=== PATIENT | male | born 1955 | race Caucasian/White ===

== ENCOUNTER 2023-01-10 14:51 | Inpatient (IN) | payer OTHER, MEDICARE ==
[~2023-01-10] VITALS: Ht 177.8 cm; Wt 94.7 kg
[2023-01-10 15:50] VITALS: BP 155/107
[2023-01-10 17:11] VITALS: BP 153/94
[2023-01-10] MEDS ORDERED: DEXTROSE 50%-WATER 25 GM/50 ML SYRINGE IVP PRN (17:30)
[2023-01-10] MEDS ORDERED: MELATONIN 3 MG TABLET PO PRN (17:45)
[2023-01-10] MEDS: HEPARIN SODIUM,PORCINE 5,000 UNITS/ML VIAL SQ SCH ×2 (17:45→23:30)
[2023-01-10 18:32] VITALS: BP 153/94
[2023-01-10 21:00] VITALS: BP 161/68
[2023-01-10] MEDS: SENNOSIDES 8.6 MG TABLET PO SCH (21:00)
[2023-01-10] MEDS: DOCUSATE SODIUM 100 MG CAPSULE PO SCH (21:18)
[2023-01-10] MEDS: GABAPENTIN 300 MG CAPSULE PO SCH (21:18)
[2023-01-10] MEDS: SULFAMETHOX/TRIMETH DS 800-160 MG/TABLET PO SCH (21:19)
[2023-01-10] MEDS: ATORVASTATIN CALCIUM 40 MG TABLET PO SCH (21:19)
[2023-01-10] MEDS: TraZODone HCL 150 MG TABLET PO SCH (21:50)
[2023-01-10] MEDS: VENLAFAXINE HCL 75 MG ER CAPSULE PO SCH (21:50)
[2023-01-10] MEDS: ETHYL ALCOHOL 62% ANTISEPTIC NASAL SANITIZER 0.6 ML AMPUL NASAL SCH (21:51)
[2023-01-10] MEDS: INSULIN LISPRO 100 UNITS/ML SQ PRN (21:52)
[2023-01-10 22:16] LABS: GLUCOMETER DEV NAME(LOC) 2WR.2B; GLUCOSE,POINT OF CARE 163 MG/DL (70-110)
[2023-01-11 06:03] LABS: BASOPHILS % (AUTO) 0.6 % (0.0-2.0); EOSINOPHILS % (AUTO) 2.4 % (1.0-6.0); HEMATOCRIT 39.1 % (41-53); HEMOGLOBIN 13.2 g/dL (13.5-17.5); LYMPHOCYTES # (AUTO) 1.7 K/uL (1.0-4.8); LYMPHOCYTES % (AUTO) 23.2 % (22.0-44.0); MEAN CORPUSCULAR HEMOGLOBIN 31.6 pg (26.0-34.0); MEAN CORPUSCULAR HGB CONC 33.8 G/dL (31.0-37.0); MEAN CORPUSCULAR VOLUME 93 fL (80-100); MONOCYTES # (AUTO) 0.8 K/uL (0.1-1.0); MONOCYTES % (AUTO) 10.9 % (2.0-9.0); NEUTROPHILS # (AUTO) 4.5 K/uL (1.8-7.7); NEUTROPHILS % (AUTO) 62.9 % (40.0-70.0); PLATELET COUNT (AUTO) 310 K/uL (150-450); RED BLOOD CELL COUNT(AUTO) 4.19 MIL/uL (4.50-5.90); RED CELL DISTRIBUTION WIDTH 13.8 % (11.5-14.5)
[2023-01-11 06:23] LABS: ALANINE AMINOTRANSFERASE 22 U/L (12-78); ALBUMIN 3.2 g/dL (3.4-5.0); ALKALINE PHOSPHATASE 65 U/L (46-116); ANION GAP 6 mmol/L (8-16); ASPARTATE AMINOTRANSFERASE 24 U/L (15-37); BILIRUBIN,TOTAL 0.2 mg/dL (0.1-1.0); CARBON DIOXIDE 29 mmol/L (22-29); CHLORIDE 103 mmol/L (98-107); CREATININE 1.17 mg/dL (0.60-1.30); GLOMERULAR FILTR. RATE CALC > 60 mL/min (>60); GLUCOSE,RANDOM 166 mg/dL (70-110); POTASSIUM 3.6 mmol/L (3.5-5.1); SODIUM SERUM 138 mmol/L (136-145); TOTAL PROTEIN, SERUM 6.5 g/dL (6.4-8.2); UREA NITROGEN, BLOOD 15 mg/dL (7-18)
[2023-01-11 06:56] LABS: GLUCOMETER DEV NAME(LOC) 2WR.2B; GLUCOSE,POINT OF CARE 177 MG/DL (70-110)
[2023-01-11] MEDS: CLOPIDOGREL BISULFATE 75 MG TABLET PO SCH (08:23)
[2023-01-11] MEDS: HEPARIN SODIUM,PORCINE 5,000 UNITS/ML VIAL SQ SCH ×3 (08:23→23:01)
[2023-01-11] MEDS: DOCUSATE SODIUM 100 MG CAPSULE PO SCH ×2 (08:24→20:32)
[2023-01-11] MEDS: CHOLECALCIFEROL (VIT D3) 1,000 UNITS [25 MCG] TABLET PO SCH (08:24)
[2023-01-11] MEDS: ASPIRIN 81 MG CHEWABLE TABLET PO SCH (08:24)
[2023-01-11] MEDS: SULFAMETHOX/TRIMETH DS 800-160 MG/TABLET PO SCH ×2 (08:25→20:32)
[2023-01-11] MEDS: BuPROPion HCL XL 150 MG ER TABLET PO SCH (08:25)
[2023-01-11] MEDS: INSULIN LISPRO 100 UNITS/ML SQ PRN ×4 (08:33→20:34)
[2023-01-11] MEDS: ETHYL ALCOHOL 62% ANTISEPTIC NASAL SANITIZER 0.6 ML AMPUL NASAL SCH ×2 (09:00→20:31)
[2023-01-11 09:02] VITALS: BP 165/92
[2023-01-11] MEDS ORDERED: PEG 400/HYPROMELLOSE/GLYCERIN 15 ML OPHTHALMIC SOLUTION OU PRN (14:30)
[2023-01-11] MEDS ORDERED: *PATIENT'S OWN MED [ENTER DRUG, DOSE, FREQUENCY IN COMMENTS] CLINICAL ONE ×2 (14:30)
[2023-01-11 14:31] LABS: GLUCOMETER DEV NAME(LOC) 2WR.2B; GLUCOSE,POINT OF CARE 162 MG/DL (70-110)
[2023-01-11] MEDS ORDERED: TRULICITY (DULAGLUTIDE) 1.5MG/0.5ML SQ SCH (15:00)
[2023-01-11 18:21] LABS: GLUCOMETER DEV NAME(LOC) 2WR.2B; GLUCOSE,POINT OF CARE 142 MG/DL (70-110)
[2023-01-11 20:26] LABS: GLUCOMETER DEV NAME(LOC) 2WR.2B; GLUCOSE,POINT OF CARE 152 MG/DL (70-110)
[2023-01-11] MEDS: ATORVASTATIN CALCIUM 40 MG TABLET PO SCH (20:31)
[2023-01-11] MEDS: VENLAFAXINE HCL 75 MG ER CAPSULE PO SCH (20:31)
[2023-01-11] MEDS: GABAPENTIN 300 MG CAPSULE PO SCH (20:31)
[2023-01-11] MEDS: TraZODone HCL 150 MG TABLET PO SCH (20:32)
[2023-01-11] MEDS: SENNOSIDES 8.6 MG TABLET PO SCH (21:00)
[2023-01-11 22:37] VITALS: BP 161/84
[2023-01-12 06:36] LABS: GLUCOMETER DEV NAME(LOC) 2WR.2B; GLUCOSE,POINT OF CARE 164 MG/DL (70-110)
[2023-01-12 08:00] VITALS: BP 209/106
[2023-01-12] MEDS: DAPAGLIFLOZIN PO SCH (08:17)
[2023-01-12] MEDS: METFORMIN PO SCH (08:17)
[2023-01-12] MEDS: SULFAMETHOX/TRIMETH DS 800-160 MG/TABLET PO SCH ×2 (08:18→20:54)
[2023-01-12] MEDS: HEPARIN SODIUM,PORCINE 5,000 UNITS/ML VIAL SQ SCH ×2 (08:18→15:50)
[2023-01-12] MEDS: DOCUSATE SODIUM 100 MG CAPSULE PO SCH ×2 (08:18→20:54)
[2023-01-12] MEDS: ETHYL ALCOHOL 62% ANTISEPTIC NASAL SANITIZER 0.6 ML AMPUL NASAL SCH ×2 (08:18→20:55)
[2023-01-12] MEDS: ASPIRIN 81 MG CHEWABLE TABLET PO SCH (08:18)
[2023-01-12] MEDS: CLOPIDOGREL BISULFATE 75 MG TABLET PO SCH (08:18)
[2023-01-12] MEDS: CHOLECALCIFEROL (VIT D3) 1,000 UNITS [25 MCG] TABLET PO SCH (08:19)
[2023-01-12] MEDS: BuPROPion HCL XL 150 MG ER TABLET PO SCH (08:19)
[2023-01-12] MEDS: INSULIN LISPRO 100 UNITS/ML SQ PRN ×3 (08:22→17:47)
[2023-01-12] MEDS ORDERED: TRULICITY (DULAGLUTIDE) 1.5MG/0.5ML SQ SCH (09:00)
[2023-01-12] MEDS ORDERED: PANTOPRAZOLE SODIUM 40 MG DR TABLET PO SCH (09:15)
[2023-01-12] MEDS ORDERED: LISINOPRIL 20 MG TABLET PO SCH (09:15)
[2023-01-12 09:45] VITALS: BP 171/96
[2023-01-12] MEDS: LISINOPRIL 20 MG TABLET PO SCH (10:04)
[2023-01-12 12:51] LABS: GLUCOMETER DEV NAME(LOC) 2WR.1C; GLUCOSE,POINT OF CARE 148 MG/DL (70-110)
[2023-01-12 13:06] LABS: APPEARANCE,URINE CLEAR (CLEAR); BILIRUBIN,URINE NEGATIVE (NEGATIVE); GLUCOSE, URINE (UA) 300-500 mg/dL (NEGATIVE); LEUKOCYTE ESTERASE ,URINE NEGATIVE (NEGATIVE); NITRATE,URINE NEGATIVE (NEGATIVE); OCCULT BLOOD,URINE NEGATIVE (NEGATIVE); PROTEIN,URINE 300-600,SEE CONFIRM mg/dL (NEGATIVE); SPECIFIC GRAVITIY, URINE 1.013 (1.003-1.030); UROBILINOGEN,URINE <=1.0 mg/dL (<=1.0)
[2023-01-12 13:44] LABS: SULFOSALICYLIC ACID,URINE 3+ (Negative)
[2023-01-12 13:45] LABS: BACTERIA,URINE None Seen /HPF (None Seen); RBC,URINE 0-2 /HPF (0-2); SQUAMOUS EPITHELIAL CELL,UR Few /LPF (None Seen); WBC,URINE None Seen /HPF (0-5)
[2023-01-12] MEDS: ONDANSETRON HCL 4 MG TABLET PO PRN (14:19)
[2023-01-12 18:00] VITALS: BP 169/100
[2023-01-12 18:45] VITALS: BP 186/72
[2023-01-12 20:51] VITALS: BP 169/106
[2023-01-12] MEDS: VENLAFAXINE HCL 75 MG ER CAPSULE PO SCH (20:54)
[2023-01-12] MEDS: TraZODone HCL 150 MG TABLET PO SCH (20:54)
[2023-01-12] MEDS: ATORVASTATIN CALCIUM 40 MG TABLET PO SCH (20:54)
[2023-01-12] MEDS: GABAPENTIN 300 MG CAPSULE PO SCH (20:55)
[2023-01-12] MEDS: PANTOPRAZOLE SODIUM 40 MG/VIAL IVP SCH (20:55)
[2023-01-12] MEDS: SENNOSIDES 8.6 MG TABLET PO SCH (20:58)
[2023-01-12] MEDS: LACTOBAC ACID/BULG/BIFID/THERM TABLET PO SCH (20:58)
[2023-01-13 00:01] LABS: GLUCOMETER DEV NAME(LOC) 2WR.1C; GLUCOSE,POINT OF CARE 144 MG/DL (70-110)
[2023-01-13 00:01] LABS: GLUCOMETER DEV NAME(LOC) 2WR.1C; GLUCOSE,POINT OF CARE 135 MG/DL (70-110)
[2023-01-13] MEDS: ONDANSETRON HCL 4 MG TABLET PO PRN ×2 (04:32→14:22)
[2023-01-13 05:49] VITALS: BP 162/104
[2023-01-13 07:12] LABS: BASOPHILS % (AUTO) 0.5 % (0.0-2.0); EOSINOPHILS % (AUTO) 0.3 % (1.0-6.0); HEMATOCRIT 44.5 % (41-53); HEMOGLOBIN 15.2 g/dL (13.5-17.5); LYMPHOCYTES # (AUTO) 1.2 K/uL (1.0-4.8); LYMPHOCYTES % (AUTO) 8.9 % (22.0-44.0); MEAN CORPUSCULAR HEMOGLOBIN 32.1 pg (26.0-34.0); MEAN CORPUSCULAR HGB CONC 34.3 G/dL (31.0-37.0); MEAN CORPUSCULAR VOLUME 94 fL (80-100); MONOCYTES # (AUTO) 0.8 K/uL (0.1-1.0); MONOCYTES % (AUTO) 6.3 % (2.0-9.0); NEUTROPHILS # (AUTO) 11.2 K/uL (1.8-7.7); PLATELET COUNT (AUTO) 351 K/uL (150-450); RED BLOOD CELL COUNT(AUTO) 4.74 MIL/uL (4.50-5.90); RED CELL DISTRIBUTION WIDTH 13.4 % (11.5-14.5)
[2023-01-13] MEDS: DAPAGLIFLOZIN PO SCH (07:30)
[2023-01-13] MEDS: METFORMIN PO SCH (07:30)
[2023-01-13 07:34] LABS: ALBUMIN 3.8 g/dL (3.4-5.0); BILIRUBIN,TOTAL 0.4 mg/dL (0.1-1.0); CALCIUM, TOTAL 9.6 mg/dL (8.8-10.5); CREATININE 1.33 mg/dL (0.60-1.30); POTASSIUM 4.1 mmol/L (3.5-5.1); TOTAL PROTEIN, SERUM 7.4 g/dL (6.4-8.2)
[2023-01-13 07:45] VITALS: BP 197/94
[2023-01-13 07:45] LABS: GLUCOMETER DEV NAME(LOC) 2WR.2B; GLUCOSE,POINT OF CARE 137 MG/DL (70-110)
[2023-01-13] MEDS ORDERED: SODIUM CHLORIDE 0.9% 1,000 ML IV ONE (07:45)
[2023-01-13] MEDS: PANTOPRAZOLE SODIUM 40 MG/VIAL IVP SCH ×2 (07:52→22:01)
[2023-01-13] MEDS: DOCUSATE SODIUM 100 MG CAPSULE PO SCH ×2 (08:02→21:58)
[2023-01-13] MEDS: CLOPIDOGREL BISULFATE 75 MG TABLET PO SCH (08:02)
[2023-01-13] MEDS: LACTOBAC ACID/BULG/BIFID/THERM TABLET PO SCH ×2 (08:02→21:58)
[2023-01-13] MEDS: LISINOPRIL 20 MG TABLET PO SCH (08:02)
[2023-01-13] MEDS: CHOLECALCIFEROL (VIT D3) 1,000 UNITS [25 MCG] TABLET PO SCH (08:02)
[2023-01-13] MEDS: BuPROPion HCL XL 150 MG ER TABLET PO SCH (08:03)
[2023-01-13] MEDS: ASPIRIN 81 MG CHEWABLE TABLET PO SCH (08:03)
[2023-01-13] MEDS: ETHYL ALCOHOL 62% ANTISEPTIC NASAL SANITIZER 0.6 ML AMPUL NASAL SCH ×2 (08:05→21:58)
[2023-01-13] MEDS: AmLODIPine BESYLATE 5 MG TABLET PO SCH (08:57)
[2023-01-13 10:21] VITALS: BP 194/111
[2023-01-13] MEDS: CloNIDine HCL 0.1 MG TABLET PO PRN (10:23)
[2023-01-13 11:23] VITALS: BP 164/88
[2023-01-13 12:06] LABS: GLUCOMETER DEV NAME(LOC) 2WR.2B; GLUCOSE,POINT OF CARE 156 MG/DL (70-110)
[2023-01-13 17:52] LABS: GLUCOMETER DEV NAME(LOC) 2WR.2B; GLUCOSE,POINT OF CARE 149 MG/DL (70-110)
[2023-01-13 20:00] VITALS: BP 152/105
[2023-01-13] MEDS: GABAPENTIN 300 MG CAPSULE PO SCH (21:58)
[2023-01-13] MEDS: TraZODone HCL 150 MG TABLET PO SCH (21:58)
[2023-01-13] MEDS: ATORVASTATIN CALCIUM 40 MG TABLET PO SCH (21:58)
[2023-01-13] MEDS: SENNOSIDES 8.6 MG TABLET PO SCH (22:01)
[2023-01-13 23:31] LABS: GLUCOMETER DEV NAME(LOC) 2WR.2B; GLUCOSE,POINT OF CARE 148 MG/DL (70-110)
[2023-01-14 07:02] LABS: GLUCOMETER DEV NAME(LOC) 2WR.2B; GLUCOSE,POINT OF CARE 145 MG/DL (70-110)
[2023-01-14] MEDS: METFORMIN PO SCH (07:30)
[2023-01-14] MEDS: DAPAGLIFLOZIN PO SCH (07:30)
[2023-01-14] MEDS: ASPIRIN 81 MG CHEWABLE TABLET PO SCH (07:30)
[2023-01-14] MEDS: PANTOPRAZOLE SODIUM 40 MG/VIAL IVP SCH ×2 (08:55→20:17)
[2023-01-14] MEDS: 0.9% SODIUM CHLORIDE 10 ML SYRINGE IVP SCH ×2 (08:55→15:32)
[2023-01-14 09:00] VITALS: BP 192/95
[2023-01-14] MEDS: CHOLECALCIFEROL (VIT D3) 1,000 UNITS [25 MCG] TABLET PO SCH (09:00)
[2023-01-14] MEDS: LACTOBAC ACID/BULG/BIFID/THERM TABLET PO SCH ×2 (09:00→20:17)
[2023-01-14] MEDS: DOCUSATE SODIUM 100 MG CAPSULE PO SCH ×2 (09:00→20:17)
[2023-01-14] MEDS: BuPROPion HCL XL 150 MG ER TABLET PO SCH (09:00)
[2023-01-14] MEDS: ETHYL ALCOHOL 62% ANTISEPTIC NASAL SANITIZER 0.6 ML AMPUL NASAL SCH ×2 (09:01→20:17)
[2023-01-14] MEDS: LISINOPRIL 20 MG TABLET PO SCH (09:02)
[2023-01-14] MEDS: AmLODIPine BESYLATE 5 MG TABLET PO SCH (09:05)
[2023-01-14] MEDS: CLOPIDOGREL BISULFATE 75 MG TABLET PO SCH (09:08)
[2023-01-14 12:00] VITALS: BP 158/99
[2023-01-14 12:22] LABS: GLUCOMETER DEV NAME(LOC) 2WR.1C; GLUCOSE,POINT OF CARE 152 MG/DL (70-110)
[2023-01-14] MEDS ORDERED: SODIUM CHLORIDE 0.9% 1,000 ML IV ONE (14:15)
[2023-01-14 15:01] LABS: BASOPHILS % (AUTO) 0.6 % (0.0-2.0); EOSINOPHILS % (AUTO) 0.5 % (1.0-6.0); HEMATOCRIT 45.9 % (41-53); HEMOGLOBIN 15.6 g/dL (13.5-17.5); LYMPHOCYTES # (AUTO) 1.5 K/uL (1.0-4.8); LYMPHOCYTES % (AUTO) 11.6 % (22.0-44.0); MEAN CORPUSCULAR HEMOGLOBIN 32.1 pg (26.0-34.0); MEAN CORPUSCULAR VOLUME 94 fL (80-100); MONOCYTES % (AUTO) 8.3 % (2.0-9.0); NEUTROPHILS # (AUTO) 9.9 K/uL (1.8-7.7); PLATELET COUNT (AUTO) 390 K/uL (150-450); RED BLOOD CELL COUNT(AUTO) 4.87 MIL/uL (4.50-5.90); RED CELL DISTRIBUTION WIDTH 13.6 % (11.5-14.5)
[2023-01-14 15:09] LABS: CALCIUM, TOTAL 9.2 mg/dL (8.8-10.5); CREATININE 1.32 mg/dL (0.60-1.30); POTASSIUM 4.1 mmol/L (3.5-5.1)
[2023-01-14 15:44] LABS: APPEARANCE,URINE CLEAR (CLEAR); BILIRUBIN,URINE NEGATIVE (NEGATIVE); GLUCOSE, URINE (UA) 150-200 mg/dL (NEGATIVE); LEUKOCYTE ESTERASE ,URINE NEGATIVE (NEGATIVE); NITRATE,URINE NEGATIVE (NEGATIVE); OCCULT BLOOD,URINE MODERATE (NEGATIVE); PH,URINE 6.5 (5.0-8.0); PROTEIN,URINE >600,SEE CONFIRM mg/dL (NEGATIVE); SPECIFIC GRAVITIY, URINE 1.026 (1.003-1.030); UROBILINOGEN,URINE <=1.0 mg/dL (<=1.0)
[2023-01-14 15:48] LABS: BACTERIA,URINE Few /HPF (None Seen); RBC,URINE 51-100 /HPF (0-2); SQUAMOUS EPITHELIAL CELL,UR Rare /LPF (None Seen)
[2023-01-14 15:49] LABS: SULFOSALICYLIC ACID,URINE 4+ (Negative)
[2023-01-14 17:21] LABS: GLUCOMETER DEV NAME(LOC) 2WR.1C; GLUCOSE,POINT OF CARE 149 MG/DL (70-110)
[2023-01-14 18:25] VITALS: BP 175/88
[2023-01-14] MEDS: CloNIDine HCL 0.1 MG TABLET PO PRN (18:41)
[2023-01-14] MEDS: SENNOSIDES 8.6 MG TABLET PO SCH (20:18)
[2023-01-14] MEDS: GABAPENTIN 300 MG CAPSULE PO SCH (20:18)
[2023-01-14] MEDS: ATORVASTATIN CALCIUM 40 MG TABLET PO SCH ×2 (20:18→21:00)
[2023-01-14] MEDS: TraZODone HCL 150 MG TABLET PO SCH (20:18)
[2023-01-14 21:00] VITALS: BP 158/80
[2023-01-14 23:31] LABS: GLUCOMETER DEV NAME(LOC) 2WR.1C; GLUCOSE,POINT OF CARE 126 MG/DL (70-110)
[2023-01-15] MEDS: 0.9% SODIUM CHLORIDE 10 ML SYRINGE IVP SCH ×4 (00:10→23:48)
[2023-01-15 07:11] LABS: GLUCOMETER DEV NAME(LOC) 2WR.2B; GLUCOSE,POINT OF CARE 115 MG/DL (70-110)
[2023-01-15] MEDS: METFORMIN PO SCH (07:30)
[2023-01-15] MEDS: ASPIRIN 81 MG CHEWABLE TABLET PO SCH (07:30)
[2023-01-15] MEDS: DAPAGLIFLOZIN PO SCH (07:30)
[2023-01-15 08:05] VITALS: BP 141/75
[2023-01-15] MEDS: LISINOPRIL 20 MG TABLET PO SCH (09:00)
[2023-01-15] MEDS: AmLODIPine BESYLATE 5 MG TABLET PO SCH (09:00)
[2023-01-15] MEDS: CHOLECALCIFEROL (VIT D3) 1,000 UNITS [25 MCG] TABLET PO SCH (09:00)
[2023-01-15] MEDS: CLOPIDOGREL BISULFATE 75 MG TABLET PO SCH (09:00)
[2023-01-15] MEDS: DOCUSATE SODIUM 100 MG CAPSULE PO SCH ×2 (09:00→21:00)
[2023-01-15] MEDS: PANTOPRAZOLE SODIUM 40 MG/VIAL IVP SCH ×2 (09:25→21:23)
[2023-01-15] MEDS: ETHYL ALCOHOL 62% ANTISEPTIC NASAL SANITIZER 0.6 ML AMPUL NASAL SCH ×2 (09:35→21:23)
[2023-01-15 11:05] VITALS: BP 155/83
[2023-01-15 11:10] VITALS: BP 155/83
[2023-01-15 11:52] LABS: GLUCOMETER DEV NAME(LOC) 2WR.1C; GLUCOSE,POINT OF CARE 112 MG/DL (70-110)
[2023-01-15] MEDS: DEXTROSE 5%-0.45% SODIUM CHL 1,000 ML IV SCH (12:30)
[2023-01-15] MEDS: INSULIN LISPRO 100 UNITS/ML SQ PRN ×2 (17:25→21:27)
[2023-01-15 17:31] LABS: GLUCOMETER DEV NAME(LOC) 2WR.1C; GLUCOSE,POINT OF CARE 147 MG/DL (70-110)
[2023-01-15 20:00] VITALS: BP 147/75
[2023-01-15] MEDS: ATORVASTATIN CALCIUM 40 MG TABLET PO SCH (21:00)
[2023-01-15] MEDS: SENNOSIDES 8.6 MG TABLET PO SCH (21:00)
[2023-01-15 21:51] LABS: GLUCOMETER DEV NAME(LOC) 2WR.2B; GLUCOSE,POINT OF CARE 173 MG/DL (70-110)
[2023-01-15 23:45] VITALS: BP 173/80
[2023-01-15] MEDS: CloNIDine HCL 0.1 MG TABLET PO PRN (23:47)
[2023-01-16] MEDS ORDERED: METO50 PO (02:23)
[2023-01-16] MEDS ORDERED: LIGH1DRO OU (02:23)
[2023-01-16] MEDS ORDERED: PRED5DRO25 OS (02:23)
[2023-01-16 04:00] VITALS: BP 162/105
[2023-01-16] MEDS: DEXTROSE 5%-0.45% SODIUM CHL 1,000 ML IV SCH (04:43)
[2023-01-16 07:11] LABS: GLUCOMETER DEV NAME(LOC) 2WR.1C; GLUCOSE,POINT OF CARE 162 MG/DL (70-110)
[2023-01-16 07:20] LABS: BASOPHILS % (AUTO) 0.6 % (0.0-2.0); EOSINOPHILS % (AUTO) 1.5 % (1.0-6.0); HEMATOCRIT 43.7 % (41-53); HEMOGLOBIN 14.6 g/dL (13.5-17.5); LYMPHOCYTES # (AUTO) 1.6 K/uL (1.0-4.8); LYMPHOCYTES % (AUTO) 16.4 % (22.0-44.0); MEAN CORPUSCULAR HEMOGLOBIN 31.6 pg (26.0-34.0); MEAN CORPUSCULAR HGB CONC 33.4 G/dL (31.0-37.0); MEAN CORPUSCULAR VOLUME 95 fL (80-100); MONOCYTES # (AUTO) 0.9 K/uL (0.1-1.0); MONOCYTES % (AUTO) 8.8 % (2.0-9.0); NEUTROPHILS # (AUTO) 7.1 K/uL (1.8-7.7); NEUTROPHILS % (AUTO) 72.7 % (40.0-70.0); PLATELET COUNT (AUTO) 345 K/uL (150-450); RED BLOOD CELL COUNT(AUTO) 4.61 MIL/uL (4.50-5.90); RED CELL DISTRIBUTION WIDTH 13.7 % (11.5-14.5)
[2023-01-16 08:00] VITALS: BP 174/88
[2023-01-16] MEDS: DAPAGLIFLOZIN PO SCH (08:33)
[2023-01-16] MEDS: METFORMIN PO SCH (08:33)
[2023-01-16] MEDS: DOCUSATE SODIUM 100 MG CAPSULE PO SCH (08:33)
[2023-01-16] MEDS: LISINOPRIL 20 MG TABLET PO SCH (08:33)
[2023-01-16] MEDS: CHOLECALCIFEROL (VIT D3) 1,000 UNITS [25 MCG] TABLET PO SCH (08:34)
[2023-01-16] MEDS: AmLODIPine BESYLATE 5 MG TABLET PO SCH (08:34)
[2023-01-16] MEDS: PANTOPRAZOLE SODIUM 40 MG/VIAL IVP SCH (08:34)
[2023-01-16] MEDS: ETHYL ALCOHOL 62% ANTISEPTIC NASAL SANITIZER 0.6 ML AMPUL NASAL SCH (08:34)
[2023-01-16] MEDS: CLOPIDOGREL BISULFATE 75 MG TABLET PO SCH (08:34)
[2023-01-16] MEDS: ASPIRIN 81 MG CHEWABLE TABLET PO SCH (08:34)
[2023-01-16] MEDS: 0.9% SODIUM CHLORIDE 10 ML SYRINGE IVP SCH (08:35)
[2023-01-16] MEDS: INSULIN LISPRO 100 UNITS/ML SQ PRN (08:48)
[2023-01-16 11:26] LABS: GLUCOMETER DEV NAME(LOC) 2WR.1C; GLUCOSE,POINT OF CARE 150 MG/DL (70-110)
[2023-01-16] MEDS ORDERED: LORazepam 2 MG/ML VIAL IM STA (11:32)
[2023-01-16 11:51] VITALS: BP 130/79
[2023-01-16] MEDS ORDERED: ROSU10TA72 PO (12:37)
[2023-01-16] MEDS ORDERED: GABA-1181 PO (12:37)
[2023-01-16] MEDS ORDERED: BUPR-49 PO (12:37)
[2023-01-16] MEDS ORDERED: DULA1.5P SQ (12:37)
[2023-01-16] MEDS ORDERED: DAPA1TAB3 PO (12:37)
[2023-01-16] MEDS ORDERED: LISI20TA24 PO (12:37)
[2023-01-16] MEDS ORDERED: CefTRIAXone 1 GM/DEXTROSE 50 ML IV SCH (13:00)
[2023-01-17 05:27] LABS: GLUCOMETER DEV NAME(LOC) 5N.1C; GLUCOSE,POINT OF CARE 115 MG/DL (70-110)
== END 2023-01-16 12:19 | disposition short-term general hospital (02) | DRG 65 ==
LOC: 2WR 15:42
PROVIDERS: ADMIT Physical Medicine & Rehabilitation; ATTEND Physical Medicine & Rehabilitation
DX: I63.9 Cerebral infarction, unspecified (principal); N39.0 Urinary tract infection, site not specified; E04.1 Nontoxic single thyroid nodule; E11.22 Type 2 diabetes mellitus with diabetic chronic kidney disease; E11.42 Type 2 diabetes mellitus with diabetic polyneuropathy; E78.5 Hyperlipidemia, unspecified; F32.9 Major depressive disorder, single episode, unspecified; I12.9 Hypertensive chronic kidney disease with stage 1 through stage 4 chronic kidney disease, or unspecified chronic kidney disease; I25.10 Atherosclerotic heart disease of native coronary artery without angina pectoris; N18.9 Chronic kidney disease, unspecified; M48.02 Spinal stenosis, cervical region; I66.22 Occlusion and stenosis of left posterior cerebral artery; I65.1 Occlusion and stenosis of basilar artery; G43.909 Migraine, unspecified, not intractable, without status migrainosus; R41.89 Other symptoms and signs involving cognitive functions and awareness; K21.9 Gastro-esophageal reflux disease without esophagitis; K59.00 Constipation, unspecified; G47.00 Insomnia, unspecified; R62.7 Adult failure to thrive; Z82.3 Family history of stroke; Z82.49 Family history of ischemic heart disease and other diseases of the circulatory system; Z83.3 Family history of diabetes mellitus; Z86.73 Personal history of transient ischemic attack (TIA), and cerebral infarction without residual deficits; Z87.440 Personal history of urinary (tract) infections; Z88.1 Allergy status to other antibiotic agents; Z88.6 Allergy status to analgesic agent; Z82.0 Family history of epilepsy and other diseases of the nervous system; Z95.1 Presence of aortocoronary bypass graft; Z88.5 Allergy status to narcotic agent; Z79.4 Long term (current) use of insulin; Z88.8 Allergy status to other drugs, medicaments and biological substances
CPT/HCPCS: 70450; 70551; 71045; 80048; 80053; 81001; 81002; 82140; 82962; 84443; 85025; 87081; 87086; 87186; 92507; 92521; 92526; 92610; 93970; 97112; 97116; 97150; 97163; 97167; 97530; 97535; C9113; J0696; J1644; J2060; J7030; Q0162; Q9967; 36415-L1; 36415-TC

== ENCOUNTER 2023-01-16 12:20 | Inpatient (IN) | payer OTHER, MEDICARE ==
[~2023-01-16] VITALS: Ht 177.8 cm; Wt 95.9 kg
[~2023-01-16 12:20] MED LIST: LIGH1DRO OU; METO50 PO; PRED5DRO25 OS
[2023-01-16 12:31] VITALS: BP 155/82
[2023-01-16] MEDS ORDERED: DAPA1TAB3 PO (12:37)
[2023-01-16] MEDS ORDERED: GABA-1181 PO (12:37)
[2023-01-16] MEDS ORDERED: LISI20TA24 PO (12:37)
[2023-01-16] MEDS ORDERED: ROSU10TA72 PO (12:37)
[2023-01-16] MEDS ORDERED: BUPR-49 PO (12:37)
[2023-01-16] MEDS ORDERED: DULA1.5P SQ (12:37)
[2023-01-16] MEDS ORDERED: DEXTROSE 50%-WATER 25 GM/50 ML SYRINGE IVP PRN (14:00)
[2023-01-16] MEDS ORDERED: BISACODYL 10 MG RECTAL RECTAL SUPPOSITORY PR PRN (14:00)
[2023-01-16] MEDS ORDERED: ONDANSETRON HCL 4 MG/2 ML VIAL IVP PRN (14:00)
[2023-01-16] MEDS ORDERED: MAGNESIUM HYDROXIDE SUSPENSION 30 ML UDCUP PO PRN (14:00)
[2023-01-16] MEDS ORDERED: SODIUM CHLORIDE 0.9% 1,000 ML IV ONE ×2 (14:00→14:15)
[2023-01-16] MEDS ORDERED: ZOLPIDEM TARTRATE 5 MG TABLET PO PRN (14:00)
[2023-01-16 15:08] VITALS: BP 149/78
[2023-01-16] MEDS: CefTRIAXone 1 GM/DEXTROSE 50 ML IV SCH (16:40)
[2023-01-16] MEDS: HEPARIN SODIUM,PORCINE 5,000 UNITS/ML VIAL SQ SCH ×2 (16:40→23:36)
[2023-01-16] MEDS: LevETIRAcetam 500 MG in DEXTROSE 5%-WATER 100 ML IV SCH (18:18)
[2023-01-16 19:45] VITALS: BP 161/94
[2023-01-16] MEDS: DOCUSATE SODIUM 100 MG CAPSULE PO SCH (20:49)
[2023-01-16] MEDS: INSULIN LISPRO 100 UNITS/ML SQ PRN (20:50)
[2023-01-16] MEDS ORDERED: METOPROLOL TARTRATE 50 MG TABLET PO SCH (21:00)
[2023-01-16 23:25] VITALS: BP 156/89
[2023-01-17 04:35] VITALS: BP 158/88
[2023-01-17] MEDS: LevETIRAcetam 500 MG in DEXTROSE 5%-WATER 100 ML IV SCH ×2 (05:44→17:57)
[2023-01-17 06:11] LABS: BASOPHILS % (AUTO) 0.9 % (0.0-2.0); EOSINOPHILS % (AUTO) 1.4 % (1.0-6.0); HEMATOCRIT 42.7 % (41-53); HEMOGLOBIN 14.8 g/dL (13.5-17.5); LYMPHOCYTES # (AUTO) 1.6 K/uL (1.0-4.8); LYMPHOCYTES % (AUTO) 21.3 % (22.0-44.0); MEAN CORPUSCULAR HEMOGLOBIN 32.8 pg (26.0-34.0); MEAN CORPUSCULAR HGB CONC 34.7 G/dL (31.0-37.0); MEAN CORPUSCULAR VOLUME 95 fL (80-100); MONOCYTES # (AUTO) 0.7 K/uL (0.1-1.0); MONOCYTES % (AUTO) 9.1 % (2.0-9.0); NEUTROPHILS # (AUTO) 4.9 K/uL (1.8-7.7); NEUTROPHILS % (AUTO) 67.3 % (40.0-70.0); PLATELET COUNT (AUTO) 350 K/uL (150-450); RED BLOOD CELL COUNT(AUTO) 4.52 MIL/uL (4.50-5.90); RED CELL DISTRIBUTION WIDTH 13.7 % (11.5-14.5)
[2023-01-17 06:19] LABS: CALCIUM, TOTAL 8.7 mg/dL (8.8-10.5); CREATININE 1.28 mg/dL (0.60-1.30)
[2023-01-17 07:54] VITALS: BP 167/96
[2023-01-17] MEDS: ASPIRIN 81 MG CHEWABLE TABLET PO SCH (08:30)
[2023-01-17] MEDS: PANTOPRAZOLE SODIUM 40 MG DR TABLET PO SCH (09:00)
[2023-01-17] MEDS: AmLODIPine BESYLATE 10 MG TABLET PO SCH (09:00)
[2023-01-17] MEDS: CLOPIDOGREL BISULFATE 75 MG TABLET PO SCH (09:00)
[2023-01-17] MEDS: ROSUVASTATIN CALCIUM 10 MG TABLET PO SCH (09:00)
[2023-01-17] MEDS: DOCUSATE SODIUM 100 MG CAPSULE PO SCH ×2 (09:00→21:00)
[2023-01-17] MEDS: HEPARIN SODIUM,PORCINE 5,000 UNITS/ML VIAL SQ SCH ×3 (09:30→23:37)
[2023-01-17 09:46] LABS: GLUCOMETER DEV NAME(LOC) 5S.2C; GLUCOSE,POINT OF CARE 108 MG/DL (70-110)
[2023-01-17] MEDS ORDERED: MAGNESIUM SULFATE 2 GM, MVI, ADULT NO.1 WITH VIT K 10 ML, THIAMINE 100 MG, FOLIC ACID 1... IV ONE ×5 (12:30)
[2023-01-17 12:38] VITALS: BP 200/95
[2023-01-17] MEDS: HydrALAZINE HCL 20 MG/ML VIAL IVP PRN (12:49)
[2023-01-17 13:15] VITALS: BP_SYST 161; BP_SYST 195; BP_DIAS 70; BP_DIAS 74
[2023-01-17 15:49] VITALS: BP 143/77
[2023-01-17] MEDS: CefTRIAXone 1 GM/DEXTROSE 50 ML IV SCH (15:56)
[2023-01-17 18:11] LABS: GLUCOMETER DEV NAME(LOC) 5N.2C; GLUCOSE,POINT OF CARE 134 MG/DL (70-110)
[2023-01-17 20:08] VITALS: BP 144/100
[2023-01-17 21:02] LABS: GLUCOMETER DEV NAME(LOC) 5N.2C; GLUCOSE,POINT OF CARE 124 MG/DL (70-110)
[2023-01-17 22:31] LABS: GLUCOMETER DEV NAME(LOC) 5N.1C; GLUCOSE,POINT OF CARE 106 MG/DL (70-110)
[2023-01-18] VITALS (9 sets, daily range): BP systolic 142–204; BP diastolic 63–88
[2023-01-18] MEDS: HydrALAZINE HCL 20 MG/ML VIAL IVP PRN ×2 (00:09→11:34)
[2023-01-18] MEDS ORDERED: HydrALAZINE HCL 20 MG/ML VIAL IVP ONE (05:15)
[2023-01-18] MEDS: LevETIRAcetam 500 MG in DEXTROSE 5%-WATER 100 ML IV SCH ×2 (05:30→18:03)
[2023-01-18 06:42] LABS: BASOPHILS % (AUTO) 1.1 % (0.0-2.0); EOSINOPHILS % (AUTO) 1.7 % (1.0-6.0); HEMATOCRIT 42.9 % (41-53); HEMOGLOBIN 14.8 g/dL (13.5-17.5); LYMPHOCYTES # (AUTO) 1.9 K/uL (1.0-4.8); LYMPHOCYTES % (AUTO) 22.8 % (22.0-44.0); MEAN CORPUSCULAR HEMOGLOBIN 32.3 pg (26.0-34.0); MEAN CORPUSCULAR HGB CONC 34.5 G/dL (31.0-37.0); MEAN CORPUSCULAR VOLUME 94 fL (80-100); MONOCYTES # (AUTO) 0.8 K/uL (0.1-1.0); MONOCYTES % (AUTO) 9.3 % (2.0-9.0); NEUTROPHILS # (AUTO) 5.3 K/uL (1.8-7.7); NEUTROPHILS % (AUTO) 65.1 % (40.0-70.0); PLATELET COUNT (AUTO) 362 K/uL (150-450); RED BLOOD CELL COUNT(AUTO) 4.58 MIL/uL (4.50-5.90); RED CELL DISTRIBUTION WIDTH 13.8 % (11.5-14.5)
[2023-01-18 06:58] LABS: ANION GAP 14 mmol/L (8-16); CARBON DIOXIDE 25 mmol/L (22-29); CHLORIDE 115 mmol/L (98-107); CREATININE 1.19 mg/dL (0.60-1.30); GLOMERULAR FILTR. RATE CALC > 60 mL/min (>60); GLUCOSE,RANDOM 140 mg/dL (70-110); POTASSIUM 4.4 mmol/L (3.5-5.1); SODIUM SERUM 154 mmol/L (136-145); UREA NITROGEN, BLOOD 23 mg/dL (7-18)
[2023-01-18] MEDS: ASPIRIN 81 MG CHEWABLE TABLET PO SCH (08:30)
[2023-01-18] MEDS: PANTOPRAZOLE SODIUM 40 MG DR TABLET PO SCH (09:00)
[2023-01-18] MEDS: DOCUSATE SODIUM 100 MG CAPSULE PO SCH ×2 (09:00→20:36)
[2023-01-18] MEDS: CLOPIDOGREL BISULFATE 75 MG TABLET PO SCH (09:00)
[2023-01-18] MEDS: AmLODIPine BESYLATE 10 MG TABLET PO SCH (09:00)
[2023-01-18] MEDS: ROSUVASTATIN CALCIUM 10 MG TABLET PO SCH (09:00)
[2023-01-18] MEDS: HEPARIN SODIUM,PORCINE 5,000 UNITS/ML VIAL SQ SCH ×3 (09:07→23:44)
[2023-01-18] MEDS ORDERED: DEXTROSE 5%-WATER 1,000 ML IV ONE (10:45)
[2023-01-18 11:47] LABS: GLUCOMETER DEV NAME(LOC) 5S.1B; GLUCOSE,POINT OF CARE 117 MG/DL (70-110)
[2023-01-18] MEDS: CefTRIAXone 1 GM/DEXTROSE 50 ML IV SCH (16:45)
[2023-01-18 21:06] LABS: GLUCOMETER DEV NAME(LOC) 5N.1C; GLUCOSE,POINT OF CARE 165 MG/DL (70-110)
[2023-01-18 21:06] LABS: GLUCOMETER DEV NAME(LOC) 5N.1C; GLUCOSE,POINT OF CARE 129 MG/DL (70-110)
[2023-01-18 21:06] LABS: GLUCOMETER DEV NAME(LOC) 5N.1C; GLUCOSE,POINT OF CARE 126 MG/DL (70-110)
[2023-01-19 04:10] VITALS: BP 144/85
[2023-01-19] MEDS: LevETIRAcetam 500 MG in DEXTROSE 5%-WATER 100 ML IV SCH ×2 (05:17→18:12)
[2023-01-19 07:11] LABS: BASOPHILS % (AUTO) 0.6 % (0.0-2.0); EOSINOPHILS % (AUTO) 1.6 % (1.0-6.0); HEMATOCRIT 41.9 % (41-53); HEMOGLOBIN 14.3 g/dL (13.5-17.5); LYMPHOCYTES # (AUTO) 2.1 K/uL (1.0-4.8); MEAN CORPUSCULAR HGB CONC 34.2 G/dL (31.0-37.0); MEAN CORPUSCULAR VOLUME 94 fL (80-100); MONOCYTES # (AUTO) 0.8 K/uL (0.1-1.0); MONOCYTES % (AUTO) 9.4 % (2.0-9.0); NEUTROPHILS # (AUTO) 5.9 K/uL (1.8-7.7); NEUTROPHILS % (AUTO) 65.4 % (40.0-70.0); PLATELET COUNT (AUTO) 340 K/uL (150-450); RED BLOOD CELL COUNT(AUTO) 4.48 MIL/uL (4.50-5.90); RED CELL DISTRIBUTION WIDTH 13.7 % (11.5-14.5)
[2023-01-19 07:40] VITALS: BP 131/53
[2023-01-19] MEDS: ASPIRIN 81 MG CHEWABLE TABLET PO SCH (08:30)
[2023-01-19] MEDS: HEPARIN SODIUM,PORCINE 5,000 UNITS/ML VIAL SQ SCH ×2 (08:33→16:48)
[2023-01-19 08:45] LABS: ANION GAP 11 mmol/L (8-16); CARBON DIOXIDE 24 mmol/L (22-29); CHLORIDE 105 mmol/L (98-107); CREATININE 1.19 mg/dL (0.60-1.30); GLOMERULAR FILTR. RATE CALC > 60 mL/min (>60); GLUCOSE,RANDOM 168 mg/dL (70-110); POTASSIUM 3.9 mmol/L (3.5-5.1); SODIUM SERUM 140 mmol/L (136-145); UREA NITROGEN, BLOOD 21 mg/dL (7-18)
[2023-01-19] MEDS: DOCUSATE SODIUM 100 MG CAPSULE PO SCH ×2 (09:00→20:57)
[2023-01-19] MEDS: ROSUVASTATIN CALCIUM 10 MG TABLET PO SCH (09:00)
[2023-01-19] MEDS: CLOPIDOGREL BISULFATE 75 MG TABLET PO SCH (09:00)
[2023-01-19] MEDS: AmLODIPine BESYLATE 10 MG TABLET PO SCH (09:00)
[2023-01-19] MEDS: PANTOPRAZOLE SODIUM 40 MG DR TABLET PO SCH (09:00)
[2023-01-19 10:46] LABS: GLUCOMETER DEV NAME(LOC) 5S.1B; GLUCOSE,POINT OF CARE 151 MG/DL (70-110)
[2023-01-19 11:27] VITALS: BP 177/83
[2023-01-19] MEDS: HydrALAZINE HCL 20 MG/ML VIAL IVP PRN (12:05)
[2023-01-19 15:28] VITALS: BP 137/75
[2023-01-19] MEDS ORDERED: DEXAMETHASONE SOD PHOS 4 MG/ML VIAL IVP ONE (16:15)
[2023-01-19 19:50] VITALS: BP 163/90
[2023-01-19 20:06] LABS: GLUCOMETER DEV NAME(LOC) 5S.1B; GLUCOSE,POINT OF CARE 143 MG/DL (70-110)
[2023-01-19 20:06] LABS: GLUCOMETER DEV NAME(LOC) 5S.1B; GLUCOSE,POINT OF CARE 148 MG/DL (70-110)
[2023-01-19 20:07] LABS: GLUCOMETER DEV NAME(LOC) 5S.1B; GLUCOSE,POINT OF CARE 123 MG/DL (70-110)
[2023-01-19] MEDS: INSULIN LISPRO 100 UNITS/ML SQ PRN (20:51)
[2023-01-20 00:15] VITALS: BP 147/72
[2023-01-20] MEDS: HEPARIN SODIUM,PORCINE 5,000 UNITS/ML VIAL SQ SCH ×3 (02:39→17:15)
[2023-01-20 05:21] VITALS: BP 158/102
[2023-01-20] MEDS: LevETIRAcetam 500 MG in DEXTROSE 5%-WATER 100 ML IV SCH ×2 (07:03→17:15)
[2023-01-20 07:39] VITALS: BP 151/85
[2023-01-20] MEDS: ASPIRIN 81 MG CHEWABLE TABLET PO SCH (08:05)
[2023-01-20] MEDS: DOCUSATE SODIUM 100 MG CAPSULE PO SCH ×2 (08:05→21:00)
[2023-01-20] MEDS: ROSUVASTATIN CALCIUM 10 MG TABLET PO SCH (08:05)
[2023-01-20] MEDS: AmLODIPine BESYLATE 10 MG TABLET PO SCH (08:06)
[2023-01-20] MEDS: PANTOPRAZOLE SODIUM 40 MG DR TABLET PO SCH (08:06)
[2023-01-20] MEDS: CLOPIDOGREL BISULFATE 75 MG TABLET PO SCH (08:06)
[2023-01-20 08:56] LABS: GLUCOMETER DEV NAME(LOC) 5N.1C; GLUCOSE,POINT OF CARE 145 MG/DL (70-110)
[2023-01-20] MEDS ORDERED: *CLINICAL-PERIPHERAL PARENTERAL NUTRITION DOSING CLINICAL ONE (09:45)
[2023-01-20 10:35] LABS: INR 1.1 (0.9-1.1)
[2023-01-20 11:09] VITALS: BP 139/80
[2023-01-20 15:19] VITALS: BP 150/89
[2023-01-20 18:16] LABS: GLUCOMETER DEV NAME(LOC) 5S.1B; GLUCOSE,POINT OF CARE 113 MG/DL (70-110)
[2023-01-20 18:19] LABS: CALCIUM, TOTAL 9.2 mg/dL (8.8-10.5); CREATININE 1.39 mg/dL (0.60-1.30); POTASSIUM 3.9 mmol/L (3.5-5.1)
[2023-01-20 18:33] LABS: THYROID STIMULATING HORMONE 1.51 uIU/mL (0.36-3.74)
[2023-01-20 19:23] VITALS: BP 150/88
[2023-01-20 21:21] LABS: GLUCOMETER DEV NAME(LOC) 5N.2C; GLUCOSE,POINT OF CARE 115 MG/DL (70-110)
[2023-01-20] MEDS: [UNRECOGNIZED DRUG - REMARK] IV SCH ×5 (22:48)
[2023-01-21] VITALS (8 sets, daily range): BP systolic 139–179; BP diastolic 68–102
[2023-01-21] MEDS: HEPARIN SODIUM,PORCINE 5,000 UNITS/ML VIAL SQ SCH ×4 (00:24→23:57)
[2023-01-21] MEDS: LevETIRAcetam 500 MG in DEXTROSE 5%-WATER 100 ML IV SCH ×2 (05:47→17:24)
[2023-01-21 06:26] LABS: GLUCOMETER DEV NAME(LOC) 5N.2C; GLUCOSE,POINT OF CARE 139 MG/DL (70-110)
[2023-01-21] MEDS: ASPIRIN 81 MG CHEWABLE TABLET PO SCH (07:50)
[2023-01-21] MEDS: AmLODIPine BESYLATE 10 MG TABLET PO SCH (07:51)
[2023-01-21] MEDS: PANTOPRAZOLE SODIUM 40 MG DR TABLET PO SCH (07:51)
[2023-01-21] MEDS: ROSUVASTATIN CALCIUM 10 MG TABLET PO SCH (07:51)
[2023-01-21] MEDS: CLOPIDOGREL BISULFATE 75 MG TABLET PO SCH (07:51)
[2023-01-21] MEDS: DOCUSATE SODIUM 100 MG CAPSULE PO SCH ×2 (07:51→19:45)
[2023-01-21] MEDS: METOPROLOL TARTRATE 5 MG/5 ML VIAL IVP SCH ×3 (11:23→23:57)
[2023-01-21] MEDS: INSULIN LISPRO 100 UNITS/ML SQ PRN ×2 (11:26→17:24)
[2023-01-21 11:36] LABS: GLUCOMETER DEV NAME(LOC) 5S.1B; GLUCOSE,POINT OF CARE 155 MG/DL (70-110)
[2023-01-21 12:45] LABS: CALCIUM, TOTAL 8.9 mg/dL (8.8-10.5); CREATININE 1.21 mg/dL (0.60-1.30); MAGNESIUM 2.3 mg/dL (1.80-2.40); POTASSIUM 3.9 mmol/L (3.5-5.1)
[2023-01-21] MEDS: HydrALAZINE HCL 20 MG/ML VIAL IVP PRN (19:47)
[2023-01-21 22:06] LABS: GLUCOMETER DEV NAME(LOC) 5N.2C; GLUCOSE,POINT OF CARE 168 MG/DL (70-110)
[2023-01-21] MEDS: [UNRECOGNIZED DRUG - REMARK] IV SCH ×5 (23:04)
[2023-01-22 04:17] VITALS: BP 125/67
[2023-01-22] MEDS: LevETIRAcetam 500 MG in DEXTROSE 5%-WATER 100 ML IV SCH ×2 (05:33→18:02)
[2023-01-22] MEDS: METOPROLOL TARTRATE 5 MG/5 ML VIAL IVP SCH ×4 (05:34→23:44)
[2023-01-22] MEDS: INSULIN LISPRO 100 UNITS/ML SQ PRN ×3 (05:41→21:09)
[2023-01-22 06:35] LABS: ANION GAP 8 mmol/L (8-16); CALCIUM, TOTAL 9.2 mg/dL (8.8-10.5); CARBON DIOXIDE 24 mmol/L (22-29); CHLORIDE 106 mmol/L (98-107); CREATININE 1.12 mg/dL (0.60-1.30); GLOMERULAR FILTR. RATE CALC > 60 mL/min (>60); GLUCOSE,RANDOM 178 mg/dL (70-110); POTASSIUM 3.8 mmol/L (3.5-5.1); SODIUM SERUM 138 mmol/L (136-145); UREA NITROGEN, BLOOD 28 mg/dL (7-18)
[2023-01-22 06:37] LABS: GLUCOMETER DEV NAME(LOC) 5N.1C; GLUCOSE,POINT OF CARE 185 MG/DL (70-110)
[2023-01-22 06:37] LABS: GLUCOMETER DEV NAME(LOC) 5N.1C; GLUCOSE,POINT OF CARE 136 MG/DL (70-110)
[2023-01-22 06:37] LABS: GLUCOMETER DEV NAME(LOC) 5N.1C; GLUCOSE,POINT OF CARE 148 MG/DL (70-110)
[2023-01-22] MEDS: ASPIRIN 81 MG CHEWABLE TABLET PO SCH (08:30)
[2023-01-22 09:00] VITALS: BP 150/72
[2023-01-22] MEDS: DOCUSATE SODIUM 100 MG CAPSULE PO SCH ×2 (09:00→21:00)
[2023-01-22] MEDS: ROSUVASTATIN CALCIUM 10 MG TABLET PO SCH (09:00)
[2023-01-22] MEDS: AmLODIPine BESYLATE 10 MG TABLET PO SCH (09:00)
[2023-01-22] MEDS: CLOPIDOGREL BISULFATE 75 MG TABLET PO SCH (09:00)
[2023-01-22] MEDS: PANTOPRAZOLE SODIUM 40 MG DR TABLET PO SCH (09:00)
[2023-01-22] MEDS: HEPARIN SODIUM,PORCINE 5,000 UNITS/ML VIAL SQ SCH ×3 (09:21→23:44)
[2023-01-22 12:00] VITALS: BP 148/75
[2023-01-22 16:22] VITALS: BP 145/88
[2023-01-22 17:27] LABS: GLUCOMETER DEV NAME(LOC) 5N.2C; GLUCOSE,POINT OF CARE 196 MG/DL (70-110)
[2023-01-22 20:16] LABS: GLUCOMETER DEV NAME(LOC) 5S.2C; GLUCOSE,POINT OF CARE 169 MG/DL (70-110)
[2023-01-22 20:17] VITALS: BP 179/97
[2023-01-22 20:31] LABS: GLUCOMETER DEV NAME(LOC) 5S.1B; GLUCOSE,POINT OF CARE 166 MG/DL (70-110)
[2023-01-22] MEDS: HydrALAZINE HCL 20 MG/ML VIAL IVP PRN (21:25)
[2023-01-22] MEDS: [UNRECOGNIZED DRUG - REMARK] IV SCH ×5 (22:24)
[2023-01-23 00:07] LABS: GLUCOMETER DEV NAME(LOC) 5N.1C; GLUCOSE,POINT OF CARE 152 MG/DL (70-110)
[2023-01-23 00:48] VITALS: BP 133/59
[2023-01-23 05:24] VITALS: BP 142/91
[2023-01-23] MEDS: METOPROLOL TARTRATE 5 MG/5 ML VIAL IVP SCH ×4 (05:30→23:40)
[2023-01-23] MEDS: LevETIRAcetam 500 MG in DEXTROSE 5%-WATER 100 ML IV SCH ×2 (05:43→17:21)
[2023-01-23] MEDS ORDERED: CeFAZolin 2 GM/DEXTROSE 50 ML IV ONE (06:00)
[2023-01-23] MEDS: INSULIN LISPRO 100 UNITS/ML SQ PRN ×3 (06:01→18:16)
[2023-01-23 06:19] LABS: ANION GAP 10 mmol/L (8-16); CALCIUM, TOTAL 9.6 mg/dL (8.8-10.5); CARBON DIOXIDE 22 mmol/L (22-29); CHLORIDE 104 mmol/L (98-107); GLOMERULAR FILTR. RATE CALC > 60 mL/min (>60); GLUCOSE,RANDOM 177 mg/dL (70-110); PHOSPHORUS 3.9 mg/dL (2.5-4.9); POTASSIUM 4.5 mmol/L (3.5-5.1); SODIUM SERUM 136 mmol/L (136-145); UREA NITROGEN, BLOOD 31 mg/dL (7-18)
[2023-01-23] MEDS: ASPIRIN 81 MG CHEWABLE TABLET PO SCH (08:30)
[2023-01-23 08:37] VITALS: BP 137/78
[2023-01-23] MEDS: CLOPIDOGREL BISULFATE 75 MG TABLET PO SCH (09:00)
[2023-01-23] MEDS ORDERED: MODAFINIL 100 MG TABLET PO SCH (09:00)
[2023-01-23] MEDS: AmLODIPine BESYLATE 10 MG TABLET PO SCH (09:00)
[2023-01-23] MEDS: DOCUSATE SODIUM 100 MG CAPSULE PO SCH ×2 (09:00→19:52)
[2023-01-23] MEDS: ROSUVASTATIN CALCIUM 10 MG TABLET PO SCH (09:00)
[2023-01-23] MEDS: PANTOPRAZOLE SODIUM 40 MG DR TABLET PO SCH (09:00)
[2023-01-23 10:51] LABS: GLUCOMETER DEV NAME(LOC) 5S.2C; GLUCOSE,POINT OF CARE 191 MG/DL (70-110)
[2023-01-23] MEDS: HEPARIN SODIUM,PORCINE 5,000 UNITS/ML VIAL SQ SCH ×3 (11:19→23:36)
[2023-01-23 12:08] VITALS: BP 162/97
[2023-01-23 15:50] VITALS: BP 163/81
[2023-01-23 19:30] VITALS: BP 147/100
[2023-01-23 20:31] LABS: GLUCOMETER DEV NAME(LOC) 5S.1B; GLUCOSE,POINT OF CARE 190 MG/DL (70-110)
[2023-01-23 20:31] LABS: GLUCOMETER DEV NAME(LOC) 5S.1B; GLUCOSE,POINT OF CARE 147 MG/DL (70-110)
[2023-01-23] MEDS: PPN SOLUTION 1 EA, SODIUM CHLORIDE 70 MEQ, SODIUM PHOS,M-BASIC-D-BASIC 30 MEQ, POTASSIU... IV SCH ×10 (22:47)
[2023-01-24 01:05] VITALS: BP 145/92
[2023-01-24 05:14] VITALS: BP 162/72
[2023-01-24 05:26] LABS: GLUCOMETER DEV NAME(LOC) 5N.1C; GLUCOSE,POINT OF CARE 144 MG/DL (70-110)
[2023-01-24] MEDS: METHYLPHENIDATE HCL 10 MG TABLET PO SCH ×2 (05:31→16:34)
[2023-01-24] MEDS: LevETIRAcetam 500 MG in DEXTROSE 5%-WATER 100 ML IV SCH ×2 (05:40→17:27)
[2023-01-24] MEDS: METOPROLOL TARTRATE 5 MG/5 ML VIAL IVP SCH ×3 (05:40→17:37)
[2023-01-24] MEDS: INSULIN LISPRO 100 UNITS/ML SQ PRN ×4 (05:57→20:42)
[2023-01-24 07:09] LABS: ANION GAP 10 mmol/L (8-16); CALCIUM, TOTAL 9.4 mg/dL (8.8-10.5); CARBON DIOXIDE 23 mmol/L (22-29); CHLORIDE 105 mmol/L (98-107); CREATININE 1.06 mg/dL (0.60-1.30); GLOMERULAR FILTR. RATE CALC > 60 mL/min (>60); GLUCOSE,RANDOM 191 mg/dL (70-110); POTASSIUM 4.4 mmol/L (3.5-5.1); SODIUM SERUM 138 mmol/L (136-145); UREA NITROGEN, BLOOD 25 mg/dL (7-18)
[2023-01-24] MEDS ORDERED: SODIUM CHLORIDE 0.9% 1,000 ML ONE (07:16)
[2023-01-24] MEDS ORDERED: SODIUM CHLORIDE 0.9% 100 ML ONE (08:04)
[2023-01-24] MEDS: ASPIRIN 81 MG CHEWABLE TABLET PO SCH (08:30)
[2023-01-24] MEDS: DOCUSATE SODIUM 100 MG CAPSULE PO SCH ×2 (09:00→20:26)
[2023-01-24] MEDS: CLOPIDOGREL BISULFATE 75 MG TABLET PO SCH (09:00)
[2023-01-24] MEDS: ROSUVASTATIN CALCIUM 10 MG TABLET PO SCH (09:00)
[2023-01-24] MEDS: PANTOPRAZOLE SODIUM 40 MG DR TABLET PO SCH (09:00)
[2023-01-24] MEDS: AmLODIPine BESYLATE 10 MG TABLET PO SCH (09:00)
[2023-01-24 09:30] VITALS: BP 164/84
[2023-01-24] MEDS: HEPARIN SODIUM,PORCINE 5,000 UNITS/ML VIAL SQ SCH ×2 (10:08→16:34)
[2023-01-24 12:00] VITALS: BP 161/84
[2023-01-24 16:00] VITALS: BP 139/74
[2023-01-24 18:01] LABS: GLUCOMETER DEV NAME(LOC) 5S.2C; GLUCOSE,POINT OF CARE 160 MG/DL (70-110)
[2023-01-24 18:02] LABS: GLUCOMETER DEV NAME(LOC) 5S.2C; GLUCOSE,POINT OF CARE 201 MG/DL (70-110)
[2023-01-24 20:23] VITALS: BP 143/73
[2023-01-24 22:41] LABS: GLUCOMETER DEV NAME(LOC) 5N.2C; GLUCOSE,POINT OF CARE 172 MG/DL (70-110)
[2023-01-24 22:41] LABS: GLUCOMETER DEV NAME(LOC) 5N.2C; GLUCOSE,POINT OF CARE 153 MG/DL (70-110)
[2023-01-25] VITALS: BP 150/78
[2023-01-25] MEDS: HEPARIN SODIUM,PORCINE 5,000 UNITS/ML VIAL SQ SCH ×3 (00:26→16:44)
[2023-01-25] MEDS: METOPROLOL TARTRATE 5 MG/5 ML VIAL IVP SCH ×4 (00:27→16:44)
[2023-01-25] MEDS: PPN SOLUTION 1 EA, SODIUM CHLORIDE 70 MEQ, SODIUM PHOS,M-BASIC-D-BASIC 30 MEQ, POTASSIU... IV SCH ×30 (01:00→01:54)
[2023-01-25 05:16] VITALS: BP 156/69
[2023-01-25] MEDS: LevETIRAcetam 500 MG in DEXTROSE 5%-WATER 100 ML IV SCH (05:40)
[2023-01-25] MEDS: INSULIN LISPRO 100 UNITS/ML SQ PRN ×3 (05:58→21:54)
[2023-01-25] MEDS ORDERED: LIDOCAINE/PF 2% 5 ML VIAL IM ONE (06:11)
[2023-01-25] MEDS ORDERED: PROPOFOL 1% 20 ML VIAL IVP ONE (06:11)
[2023-01-25] MEDS: METHYLPHENIDATE HCL 10 MG TABLET PO SCH ×2 (06:30→16:22)
[2023-01-25 07:39] LABS: ANION GAP 8 mmol/L (8-16); CALCIUM, TOTAL 9.1 mg/dL (8.8-10.5); CARBON DIOXIDE 26 mmol/L (22-29); CHLORIDE 106 mmol/L (98-107); CREATININE 1.04 mg/dL (0.60-1.30); GLOMERULAR FILTR. RATE CALC > 60 mL/min (>60); GLUCOSE,RANDOM 171 mg/dL (70-110); PHOSPHORUS 3.8 mg/dL (2.5-4.9); POTASSIUM 4.2 mmol/L (3.5-5.1); SODIUM SERUM 140 mmol/L (136-145); UREA NITROGEN, BLOOD 23 mg/dL (7-18)
[2023-01-25 08:13] VITALS: BP 156/88
[2023-01-25] MEDS: ASPIRIN 81 MG CHEWABLE TABLET PO SCH (08:30)
[2023-01-25] MEDS: ROSUVASTATIN CALCIUM 10 MG TABLET PO SCH (08:39)
[2023-01-25] MEDS: PANTOPRAZOLE SODIUM 40 MG DR TABLET PO SCH (08:39)
[2023-01-25] MEDS: DOCUSATE SODIUM 100 MG CAPSULE PO SCH ×2 (08:39→21:00)
[2023-01-25] MEDS: AmLODIPine BESYLATE 10 MG TABLET PO SCH (08:39)
[2023-01-25] MEDS: CLOPIDOGREL BISULFATE 75 MG TABLET PO SCH (08:39)
[2023-01-25] MEDS ORDERED: SODIUM CHLORIDE 0.9% 1,000 ML IV ONE (09:45)
[2023-01-25] MEDS ORDERED: SODIUM CHLORIDE 0.9% 0 ML ONE (10:38)
[2023-01-25] MEDS ORDERED: BUPIVACAINE 0.25%/EPI 1:200,000/PF 10 ML VIAL ONE ×2 (11:42)
[2023-01-25 11:46] LABS: GLUCOMETER DEV NAME(LOC) 5N.1C; GLUCOSE,POINT OF CARE 167 MG/DL (70-110)
[2023-01-25 12:00] VITALS: BP 146/73
[2023-01-25] MEDS ORDERED: SUGAMMADEX SODIUM 200 MG/2 ML VIAL IVP ONE (13:19)
[2023-01-25] MEDS ORDERED: RINGERS SOLUTION,LACTATED 1,000 ML IV ONE (13:30)
[2023-01-25] MEDS ORDERED: FentaNYL CITRATE PF 100 MCG/2 ML VIAL IVP PRN (13:30)
[2023-01-25] MEDS ORDERED: SODIUM CHLORIDE 0.9% 1,000 ML ONE (13:30)
[2023-01-25] MEDS ORDERED: FentaNYL CITRATE PF 100 MCG/2 ML VIAL ONE (14:15)
[2023-01-25] MEDS ORDERED: HydrALAZINE HCL 20 MG/ML VIAL ONE (14:32)
[2023-01-25] MEDS: HydrALAZINE HCL 20 MG/ML VIAL IVP PRN (14:34)
[2023-01-25 16:00] VITALS: BP 149/62
[2023-01-25 19:24] VITALS: BP 154/74
[2023-01-25 21:22] LABS: GLUCOMETER DEV NAME(LOC) 5S.2C; GLUCOSE,POINT OF CARE 137 MG/DL (70-110)
[2023-01-25] MEDS: OXYGEN THERAPY IH SCH (21:25)
[2023-01-25 21:51] LABS: GLUCOMETER DEV NAME(LOC) 5N.2C; GLUCOSE,POINT OF CARE 143 MG/DL (70-110)
[2023-01-25] MEDS ORDERED: PPN SOLUTION 1 EA, SODIUM CHLORIDE 70 MEQ, SODIUM PHOS,M-BASIC-D-BASIC 30 MEQ, POTASSIU... IV SCH ×10 (22:00)
[2023-01-26] VITALS (7 sets, daily range): BP systolic 132–168; BP diastolic 68–90
[2023-01-26] MEDS: HEPARIN SODIUM,PORCINE 5,000 UNITS/ML VIAL SQ SCH ×4 (00:39→23:48)
[2023-01-26] MEDS: METOPROLOL TARTRATE 5 MG/5 ML VIAL IVP SCH ×5 (00:39→23:47)
[2023-01-26] MEDS ORDERED: SODIUM CHLORIDE 0.9% 500 ML IV ONE (02:03)
[2023-01-26] MEDS: CefTRIAXone 1 GM/DEXTROSE 50 ML IV SCH (03:17)
[2023-01-26] MEDS ORDERED: ROCURONIUM BROMIDE 10 MG/ML 5 ML VIAL IVP ONE (05:35)
[2023-01-26] MEDS ORDERED: PROPOFOL 1% 20 ML VIAL IVP ONE (05:35)
[2023-01-26] MEDS ORDERED: LIDOCAINE/PF 2% 5 ML SYRINGE IVP ONE (05:35)
[2023-01-26] MEDS ORDERED: FentaNYL CITRATE PF 100 MCG/2 ML VIAL IVP ONE (05:35)
[2023-01-26] MEDS: METHYLPHENIDATE HCL 10 MG TABLET PO SCH ×2 (06:02→16:59)
[2023-01-26] MEDS: INSULIN LISPRO 100 UNITS/ML SQ PRN ×3 (06:17→17:28)
[2023-01-26 06:52] LABS: BASOPHILS % (AUTO) 0.5 % (0.0-2.0); EOSINOPHILS % (AUTO) 0.5 % (1.0-6.0); HEMATOCRIT 40.1 % (41-53); HEMOGLOBIN 13.6 g/dL (13.5-17.5); LYMPHOCYTES # (AUTO) 1.3 K/uL (1.0-4.8); LYMPHOCYTES % (AUTO) 11.5 % (22.0-44.0); MEAN CORPUSCULAR HEMOGLOBIN 32.3 pg (26.0-34.0); MEAN CORPUSCULAR VOLUME 95 fL (80-100); MONOCYTES # (AUTO) 1.1 K/uL (0.1-1.0); MONOCYTES % (AUTO) 10.2 % (2.0-9.0); NEUTROPHILS # (AUTO) 8.5 K/uL (1.8-7.7); NEUTROPHILS % (AUTO) 77.3 % (40.0-70.0); PLATELET COUNT (AUTO) 262 K/uL (150-450); RED BLOOD CELL COUNT(AUTO) 4.22 MIL/uL (4.50-5.90); RED CELL DISTRIBUTION WIDTH 13.7 % (11.5-14.5)
[2023-01-26 07:11] LABS: ANION GAP 8 mmol/L (8-16); CALCIUM, TOTAL 9.1 mg/dL (8.8-10.5); CARBON DIOXIDE 25 mmol/L (22-29); CHLORIDE 106 mmol/L (98-107); CREATININE 1.06 mg/dL (0.60-1.30); GLOMERULAR FILTR. RATE CALC > 60 mL/min (>60); GLUCOSE,RANDOM 214 mg/dL (70-110); SODIUM SERUM 139 mmol/L (136-145); UREA NITROGEN, BLOOD 24 mg/dL (7-18)
[2023-01-26] MEDS: DOCUSATE SODIUM 100 MG CAPSULE PO SCH ×2 (09:00→20:53)
[2023-01-26 09:04] LABS: APPEARANCE,URINE CLEAR (CLEAR); BILIRUBIN,URINE NEGATIVE (NEGATIVE); GLUCOSE, URINE (UA) 300-500 mg/dL (NEGATIVE); KETONES,URINE 40-60 mg/dL (NEGATIVE); LEUKOCYTE ESTERASE ,URINE NEGATIVE (NEGATIVE); NITRATE,URINE NEGATIVE (NEGATIVE); OCCULT BLOOD,URINE TRACE (NEGATIVE); PH,URINE 5.5 (5.0-8.0); PROTEIN,URINE 100-200,SEE CONFIRM mg/dL (NEGATIVE); SPECIFIC GRAVITIY, URINE 1.018 (1.003-1.030); UROBILINOGEN,URINE <=1.0 mg/dL (<=1.0)
[2023-01-26 09:15] LABS: RBC,URINE 0-2 /HPF (0-2); SULFOSALICYLIC ACID,URINE 2+ (Negative)
[2023-01-26 09:16] LABS: BACTERIA,URINE None Seen /HPF (None Seen); SQUAMOUS EPITHELIAL CELL,UR Few /LPF (None Seen); WBC,URINE None Seen /HPF (0-5)
[2023-01-26] MEDS: OXYGEN THERAPY IH SCH ×2 (09:52→20:00)
[2023-01-26] MEDS: AmLODIPine BESYLATE 10 MG TABLET PO SCH (09:52)
[2023-01-26] MEDS: ROSUVASTATIN CALCIUM 10 MG TABLET PO SCH (09:52)
[2023-01-26] MEDS: CLOPIDOGREL BISULFATE 75 MG TABLET PO SCH (09:52)
[2023-01-26] MEDS: ASPIRIN 81 MG CHEWABLE TABLET PO SCH (09:52)
[2023-01-26] MEDS: PANTOPRAZOLE SODIUM 40 MG/VIAL IVP SCH (09:52)
[2023-01-26 10:07] LABS: GLUCOMETER DEV NAME(LOC) 5N.1C; GLUCOSE,POINT OF CARE 202 MG/DL (70-110)
[2023-01-26 10:07] LABS: GLUCOMETER DEV NAME(LOC) 5N.1C; GLUCOSE,POINT OF CARE 185 MG/DL (70-110)
[2023-01-26] MEDS: HydrALAZINE HCL 20 MG/ML VIAL IVP PRN (10:21)
[2023-01-26] MEDS ORDERED: FLUCONAZOLE 100 MG TABLET PO SCH (16:15)
[2023-01-26] MEDS ORDERED: TraMADol HCL 50 MG TABLET PO PRN (17:45)
[2023-01-26] MEDS: FLUCONAZOLE 10 MG/ML 5 ML SUSP ORAL.SYG GT SCH (18:05)
[2023-01-26 20:41] LABS: GLUCOMETER DEV NAME(LOC) 5S.2C; GLUCOSE,POINT OF CARE 177 MG/DL (70-110)
[2023-01-27] MEDS: CefTRIAXone 1 GM/DEXTROSE 50 ML IV SCH (02:18)
[2023-01-27 04:53] VITALS: BP 159/78
[2023-01-27] MEDS: METOPROLOL TARTRATE 5 MG/5 ML VIAL IVP SCH ×4 (05:25→23:24)
[2023-01-27] MEDS: METHYLPHENIDATE HCL 10 MG TABLET PO SCH ×2 (05:27→18:40)
[2023-01-27 05:36] LABS: GLUCOMETER DEV NAME(LOC) 5N.1C; GLUCOSE,POINT OF CARE 144 MG/DL (70-110)
[2023-01-27 05:36] LABS: GLUCOMETER DEV NAME(LOC) 5N.1C; GLUCOSE,POINT OF CARE 156 MG/DL (70-110)
[2023-01-27] MEDS: INSULIN LISPRO 100 UNITS/ML SQ PRN ×2 (05:36→12:17)
[2023-01-27 05:41] LABS: GLUCOMETER DEV NAME(LOC) 5N.2C; GLUCOSE,POINT OF CARE 122 MG/DL (70-110)
[2023-01-27 07:22] LABS: ANION GAP 10 mmol/L (8-16); CALCIUM, TOTAL 9.4 mg/dL (8.8-10.5); CARBON DIOXIDE 25 mmol/L (22-29); CHLORIDE 104 mmol/L (98-107); CREATININE 1.12 mg/dL (0.60-1.30); GLOMERULAR FILTR. RATE CALC > 60 mL/min (>60); GLUCOSE,RANDOM 149 mg/dL (70-110); PHOSPHORUS 3.1 mg/dL (2.5-4.9); POTASSIUM 4.2 mmol/L (3.5-5.1); SODIUM SERUM 139 mmol/L (136-145); UREA NITROGEN, BLOOD 21 mg/dL (7-18)
[2023-01-27 07:30] VITALS: BP 139/65
[2023-01-27] MEDS: HEPARIN SODIUM,PORCINE 5,000 UNITS/ML VIAL SQ SCH ×3 (09:06→23:24)
[2023-01-27] MEDS: ROSUVASTATIN CALCIUM 10 MG TABLET PO SCH (09:08)
[2023-01-27] MEDS: FLUCONAZOLE 10 MG/ML 5 ML SUSP ORAL.SYG GT SCH (09:10)
[2023-01-27] MEDS: DOCUSATE SODIUM 100 MG CAPSULE PO SCH ×2 (09:11→20:53)
[2023-01-27] MEDS: ASPIRIN 81 MG CHEWABLE TABLET PO SCH (09:12)
[2023-01-27] MEDS: PANTOPRAZOLE SODIUM 40 MG/VIAL IVP SCH (09:12)
[2023-01-27] MEDS: CLOPIDOGREL BISULFATE 75 MG TABLET PO SCH (09:13)
[2023-01-27] MEDS: AmLODIPine BESYLATE 10 MG TABLET PO SCH (09:14)
[2023-01-27 11:26] VITALS: BP 160/77
[2023-01-27] MEDS ORDERED: IOHEXOL 350 MG/ML 100 ML VIAL ONE (16:04)
[2023-01-27 16:35] VITALS: BP 116/58
[2023-01-27 20:18] VITALS: BP 143/85
[2023-01-27 20:41] LABS: GLUCOMETER DEV NAME(LOC) 5S.2C; GLUCOSE,POINT OF CARE 115 MG/DL (70-110)
[2023-01-27 20:41] LABS: GLUCOMETER DEV NAME(LOC) 5S.2C; GLUCOSE,POINT OF CARE 124 MG/DL (70-110)
[2023-01-27 20:41] LABS: GLUCOMETER DEV NAME(LOC) 5S.2C; GLUCOSE,POINT OF CARE 159 MG/DL (70-110)
[2023-01-27] MEDS ORDERED: RINGERS SOLUTION,LACTATED 1,000 ML IV ONE (22:32)
[2023-01-27] MEDS ORDERED: SODIUM CHLORIDE 0.9% 0 ML ONE (22:47)
[2023-01-27] MEDS ORDERED: BUPIVACAINE 0.25%/EPI 1:200,000/PF 10 ML VIAL ONE (22:47)
[2023-01-28] MEDS ORDERED: SUGAMMADEX SODIUM 200 MG/2 ML VIAL IVP ONE (00:16)
[2023-01-28] MEDS: CefTRIAXone 1 GM/DEXTROSE 50 ML IV SCH (01:33)
[2023-01-28 04:50] VITALS: BP 147/75
[2023-01-28 05:59] LABS: ANION GAP 12 mmol/L (8-16); CALCIUM, TOTAL 8.8 mg/dL (8.8-10.5); CARBON DIOXIDE 22 mmol/L (22-29); CHLORIDE 103 mmol/L (98-107); CREATININE 1.14 mg/dL (0.60-1.30); GLOMERULAR FILTR. RATE CALC > 60 mL/min (>60); GLUCOSE,RANDOM 146 mg/dL (70-110); PHOSPHORUS 4.5 mg/dL (2.5-4.9); POTASSIUM 4.1 mmol/L (3.5-5.1); SODIUM SERUM 137 mmol/L (136-145); UREA NITROGEN, BLOOD 17 mg/dL (7-18)
[2023-01-28] MEDS: METHYLPHENIDATE HCL 10 MG TABLET PO SCH ×2 (06:27→17:47)
[2023-01-28] MEDS: METOPROLOL TARTRATE 5 MG/5 ML VIAL IVP SCH ×3 (06:27→18:08)
[2023-01-28 07:23] VITALS: BP 133/87
[2023-01-28 07:26] LABS: GLUCOMETER DEV NAME(LOC) 5N.1C; GLUCOSE,POINT OF CARE 141 MG/DL (70-110)
[2023-01-28] MEDS: HEPARIN SODIUM,PORCINE 5,000 UNITS/ML VIAL SQ SCH ×2 (10:58→17:47)
[2023-01-28] MEDS: ROSUVASTATIN CALCIUM 10 MG TABLET PO SCH (11:00)
[2023-01-28] MEDS: CLOPIDOGREL BISULFATE 75 MG TABLET PO SCH (11:00)
[2023-01-28] MEDS: FLUCONAZOLE 10 MG/ML 5 ML SUSP ORAL.SYG GT SCH (11:00)
[2023-01-28] MEDS: DOCUSATE SODIUM 100 MG CAPSULE PO SCH ×2 (11:00→21:00)
[2023-01-28] MEDS: ASPIRIN 81 MG CHEWABLE TABLET PO SCH (11:00)
[2023-01-28] MEDS: PANTOPRAZOLE SODIUM 40 MG/VIAL IVP SCH (11:01)
[2023-01-28] MEDS: AmLODIPine BESYLATE 10 MG TABLET PO SCH (11:01)
[2023-01-28 11:39] VITALS: BP 149/67
[2023-01-28 15:01] VITALS: BP 152/80
[2023-01-28 20:07] VITALS: BP 158/82
[2023-01-28 20:25] VITALS: BP 138/81
[2023-01-28] MEDS: INSULIN LISPRO 100 UNITS/ML SQ PRN (22:25)
[2023-01-29 00:42] VITALS: BP 135/80
[2023-01-29] MEDS: METOPROLOL TARTRATE 5 MG/5 ML VIAL IVP SCH ×4 (00:42→18:12)
[2023-01-29] MEDS: HEPARIN SODIUM,PORCINE 5,000 UNITS/ML VIAL SQ SCH ×3 (00:42→16:44)
[2023-01-29] MEDS: CefTRIAXone 1 GM/DEXTROSE 50 ML IV SCH (01:38)
[2023-01-29 04:59] VITALS: BP 146/70
[2023-01-29] MEDS ORDERED: LIDOCAINE/PF 2% 5 ML SYRINGE IVP ONE (05:49)
[2023-01-29] MEDS ORDERED: ESMOLOL HCL 10 MG/ML 10 ML VIAL IVP ONE (05:49)
[2023-01-29] MEDS ORDERED: PROPOFOL 1% 20 ML VIAL IVP ONE (05:49)
[2023-01-29] MEDS ORDERED: ROCURONIUM BROMIDE 10 MG/ML 5 ML VIAL IVP ONE (05:49)
[2023-01-29] MEDS ORDERED: FentaNYL CITRATE PF 100 MCG/2 ML VIAL IVP ONE (05:49)
[2023-01-29] MEDS: INSULIN LISPRO 100 UNITS/ML SQ PRN ×3 (05:53→16:51)
[2023-01-29] MEDS: METHYLPHENIDATE HCL 10 MG TABLET PO SCH ×2 (05:58→16:44)
[2023-01-29 06:04] LABS: ANION GAP 9 mmol/L (8-16); CALCIUM, TOTAL 9.3 mg/dL (8.8-10.5); CARBON DIOXIDE 27 mmol/L (22-29); CHLORIDE 103 mmol/L (98-107); GLOMERULAR FILTR. RATE CALC > 60 mL/min (>60); GLUCOSE,RANDOM 159 mg/dL (70-110); POTASSIUM 4.2 mmol/L (3.5-5.1); SODIUM SERUM 139 mmol/L (136-145); UREA NITROGEN, BLOOD 15 mg/dL (7-18)
[2023-01-29 07:40] VITALS: BP 168/82
[2023-01-29] MEDS: CLOPIDOGREL BISULFATE 75 MG TABLET PO SCH (08:50)
[2023-01-29] MEDS: AmLODIPine BESYLATE 10 MG TABLET PO SCH (08:50)
[2023-01-29] MEDS: ROSUVASTATIN CALCIUM 10 MG TABLET PO SCH (08:50)
[2023-01-29] MEDS: ASPIRIN 81 MG CHEWABLE TABLET PO SCH (08:50)
[2023-01-29] MEDS: PANTOPRAZOLE SODIUM 40 MG/VIAL IVP SCH (08:51)
[2023-01-29] MEDS: DOCUSATE SODIUM 100 MG/10 ML LIQUID UDCUP PEG SCH ×2 (08:51→20:25)
[2023-01-29] MEDS: FLUCONAZOLE 10 MG/ML 5 ML SUSP ORAL.SYG GT SCH (08:54)
[2023-01-29 11:25] VITALS: BP 147/84
[2023-01-29 16:00] VITALS: BP 132/70
[2023-01-29 18:21] LABS: GLUCOMETER DEV NAME(LOC) 5S.2C; GLUCOSE,POINT OF CARE 147 MG/DL (70-110)
[2023-01-29 18:26] LABS: GLUCOMETER DEV NAME(LOC) 5S.2C; GLUCOSE,POINT OF CARE 150 MG/DL (70-110)
[2023-01-29 18:26] LABS: GLUCOMETER DEV NAME(LOC) 5S.2C; GLUCOSE,POINT OF CARE 106 MG/DL (70-110)
[2023-01-29 19:27] VITALS: BP 136/95
[2023-01-29] MEDS ORDERED: ASPI81TA87 PO (19:51)
[2023-01-29] MEDS ORDERED: CLOP75TA60 PO (19:52)
[2023-01-29] MEDS ORDERED: AMLO-258 PO (19:52)
[2023-01-29] MEDS ORDERED: CEFX2I IV (19:56)
[2023-01-29] MEDS ORDERED: FLUC100T68 GT (19:57)
[2023-01-29] MEDS ORDERED: METH-624 PO (19:58)
[2023-01-29] MEDS ORDERED: PANT-31 PO (20:00)
[2023-01-29 20:31] LABS: GLUCOMETER DEV NAME(LOC) 5N.1C; GLUCOSE,POINT OF CARE 159 MG/DL (70-110)
[2023-01-29 20:31] LABS: GLUCOMETER DEV NAME(LOC) 5N.1C; GLUCOSE,POINT OF CARE 186 MG/DL (70-110)
[2023-01-29 20:31] LABS: GLUCOMETER DEV NAME(LOC) 5N.2C; GLUCOSE,POINT OF CARE 158 MG/DL (70-110)
[2023-01-29 20:46] LABS: GLUCOMETER DEV NAME(LOC) 5N.1C; GLUCOSE,POINT OF CARE 131 MG/DL (70-110)
== END 2023-01-29 21:38 | DRG 70 ==
LOC: 5S 12:20
PROVIDERS: ADMIT Internal Medicine; ATTEND Internal Medicine
PROC: 4A00X4Z Measurement of Central Nervous Electrical Activity, External Approach (ICD-10-PCS; principal; 2023-01-16)
PROC: 0DB98ZX Excision of Duodenum, Via Natural or Artificial Opening Endoscopic, Diagnostic (ICD-10-PCS; 2023-01-24)
PROC: 0DH60UZ Insertion of Feeding Device into Stomach, Open Approach (ICD-10-PCS; 2023-01-25)
PROC: 0DP6XUZ Removal of Feeding Device from Stomach, External Approach (ICD-10-PCS; 2023-01-27)
PROC: 0DH64UZ Insertion of Feeding Device into Stomach, Percutaneous Endoscopic Approach (ICD-10-PCS; 2023-01-27)
DX: G93.41 Metabolic encephalopathy (principal); E43 Unspecified severe protein-calorie malnutrition; N17.0 Acute kidney failure with tubular necrosis; I47.1 Supraventricular tachycardia; N39.0 Urinary tract infection, site not specified; E87.0 Hyperosmolality and hypernatremia; K94.23 Gastrostomy malfunction; R53.83 Other fatigue; R33.9 Retention of urine, unspecified; E11.22 Type 2 diabetes mellitus with diabetic chronic kidney disease; I12.9 Hypertensive chronic kidney disease with stage 1 through stage 4 chronic kidney disease, or unspecified chronic kidney disease; E11.65 Type 2 diabetes mellitus with hyperglycemia; R62.7 Adult failure to thrive; D72.829 Elevated white blood cell count, unspecified; E11.42 Type 2 diabetes mellitus with diabetic polyneuropathy; E78.5 Hyperlipidemia, unspecified; I25.10 Atherosclerotic heart disease of native coronary artery without angina pectoris; F32.9 Major depressive disorder, single episode, unspecified; G47.10 Hypersomnia, unspecified; N18.9 Chronic kidney disease, unspecified; Y83.8 Other surgical procedures as the cause of abnormal reaction of the patient, or of later complication, without mention of misadventure at the time of the procedure; Y82.8 Other medical devices associated with adverse incidents; Z95.1 Presence of aortocoronary bypass graft; Z88.1 Allergy status to other antibiotic agents; Z88.6 Allergy status to analgesic agent; Z91.018 Allergy to other foods; Z68.29 Body mass index [BMI] 29.0-29.9, adult; Z79.899 Other long term (current) drug therapy; Z79.84 Long term (current) use of oral hypoglycemic drugs; I69.391 Dysphagia following cerebral infarction; Y92.89 Other specified places as the place of occurrence of the external cause
CPT/HCPCS: 70551; 71045; 74018; 74176; 76770; 80048; 81001; 81002; 82140; 82962; 83605; 83735; 84100; 84145; 84443; 84484; 85025; 85610; 87040; 87081; 88305; 92507; 92523; 92526; 92610; 93005; 93306; 95816; 97112; 97116; 97163; 97167; 97530; 97535; C9113; J0360; J0610; J0690; J0696; J0712; J1100; J1644; J2704; J3010; J3411; J3475; J3490; J7030; J7040; J7050; J7060; J7070; J7120; J7131; Q9967; 36415-L1; 36415-TC; X7700; Z7610